=== PATIENT | female | born 1970 | race Caucasian/White ===

== ENCOUNTER 2017-04-25 22:21 | Emergency (ER) | payer SELFPAY ==
[~2017-04-25] VITALS: Ht 160 cm; Wt 66.8 kg
[2017-04-25 22:51] LABS: APPEARANCE,URINE TURBID (CLEAR); BILIRUBIN,URINE NEGATIVE (NEGATIVE); GLUCOSE, URINE (UA) NEGATIVE (NEGATIVE); KETONES,URINE NEGATIVE (NEGATIVE); LEUKOCYTE ESTERASE ,URINE MODERATE (NEGATIVE); OCCULT BLOOD,URINE LARGE (NEGATIVE); PROTEIN,URINE SEE CONFIRM (NEGATIVE)
[2017-04-25 23:01] LABS: BACTERIA,URINE Few /HPF (None Seen); SQUAMOUS EPITHELIAL CELL,UR Few /LPF (None Seen)
[2017-04-25 23:02] LABS: SULFOSALICYLIC ACID,URINE 3+ (Negative)
[2017-04-25] MEDS ORDERED: PHENAZOPYRIDINE HCL 100 MG TABLET PO ONE (23:30)
[2017-04-25] MEDS ORDERED: CEPHALEXIN MONOHYDRATE 500 MG CAPSULE PO ONE (23:30)
[2017-04-25 23:46] VITALS: BP 132/87
== END 2017-04-26 00:06 | disposition home or self-care (01) ==
LOC: EMS 22:23
DX: N39.0 Urinary tract infection, site not specified (principal); F17.210 Nicotine dependence, cigarettes, uncomplicated; Z71.6 Tobacco abuse counseling
CPT/HCPCS: 87086; 99284; 99406

== ENCOUNTER 2017-07-17 10:38 | Emergency (ER) | payer OTHER ==
[~2017-07-17] VITALS: Ht 160 cm; Wt 66.8 kg
[2017-07-17] MEDS ORDERED: IBUP-2071 PO (10:40)
[2017-07-17] MEDS ORDERED: DIAZEPAM 5 MG TABLET PO ONE (11:45)
[2017-07-17] MEDS ORDERED: KETOROLAC TROMETHAMINE 10 MG TABLET PO ONE (11:45)
[2017-07-17 12:14] VITALS: BP 134/95
== END 2017-07-17 12:16 | disposition home or self-care (01) ==
LOC: EMS 10:39
DX: S46.912A Strain of unspecified muscle, fascia and tendon at shoulder and upper arm level, left arm, initial encounter (principal); F17.210 Nicotine dependence, cigarettes, uncomplicated; I10 Essential (primary) hypertension; X50.9XXA Other and unspecified overexertion or strenuous movements or postures, initial encounter; Y93.F2 Activity, caregiving, lifting; Y92.89 Other specified places as the place of occurrence of the external cause; Y99.9 Unspecified external cause status
CPT/HCPCS: 99283

== ENCOUNTER 2017-09-05 22:33 | Emergency (ER) | payer SELFPAY ==
[~2017-09-05] VITALS: Ht 160 cm; Wt 66.8 kg
[~2017-09-05 22:33] MED LIST: IBUP-2071 PO
[2017-09-05] MEDS ORDERED: LIDOCAINE HCL/PF 1% 5 ML VIAL INJ ONE (23:30)
[2017-09-06 01:00] VITALS: BP 119/71
== END 2017-09-06 01:02 | disposition home or self-care (01) ==
LOC: EMS 22:34
DX: S63.290A Dislocation of distal interphalangeal joint of right index finger, initial encounter (principal); I10 Essential (primary) hypertension; F17.210 Nicotine dependence, cigarettes, uncomplicated; W51.XXXA Accidental striking against or bumped into by another person, initial encounter; Y93.89 Activity, other specified; Y92.89 Other specified places as the place of occurrence of the external cause; Y99.8 Other external cause status
CPT/HCPCS: 26770; 73130; 99284; J3490; 29280

== ENCOUNTER 2018-05-10 20:51 | Emergency (ER) | payer SELFPAY ==
[~2018-05-10] VITALS: Ht 167.6 cm; Wt 65.9 kg
[2018-05-10 21:08] VITALS: BP 143/68
[2018-05-10] MEDS ORDERED: ACETAMINOPHEN 500 MG TABLET PO ONE (21:30)
== END 2018-05-10 22:10 | disposition home or self-care (01) ==
LOC: EMS 20:52
DX: S00.03XA Contusion of scalp, initial encounter (principal); I10 Essential (primary) hypertension; F17.210 Nicotine dependence, cigarettes, uncomplicated; Y04.0XXA Assault by unarmed brawl or fight, initial encounter; Y93.89 Activity, other specified; Y92.89 Other specified places as the place of occurrence of the external cause; Y99.8 Other external cause status
CPT/HCPCS: 99406

== ENCOUNTER 2019-02-18 17:22 | Emergency (ER) | payer MEDICAID ==
[~2019-02-18] VITALS: Ht 160 cm; Wt 65.9 kg
[2019-02-18] MEDS ORDERED: HYDR25TA PO (17:56)
[2019-02-18] MEDS ORDERED: LIDOCAINE 5% TRANSDERMAL PATCH TD ONE (18:30)
[2019-02-18] MEDS ORDERED: KETOROLAC TROMETHAMINE 30 MG/ML VIAL IM ONE (18:30)
[2019-02-18 20:17] VITALS: BP 135/63
== END 2019-02-18 20:29 | disposition home or self-care (01) ==
LOC: EMS 17:23
DX: S20.211A Contusion of right front wall of thorax, initial encounter (principal); I10 Essential (primary) hypertension; F17.210 Nicotine dependence, cigarettes, uncomplicated; Z79.899 Other long term (current) drug therapy; Y04.0XXA Assault by unarmed brawl or fight, initial encounter; Y93.89 Activity, other specified; Y92.89 Other specified places as the place of occurrence of the external cause; Y99.8 Other external cause status
CPT/HCPCS: 71101; 99283; 99406; J1885